=== PATIENT | male | born 1950 | race Caucasian/White ===

== ENCOUNTER 2020-10-20 17:24 | Emergency (ER) | payer BC, OTHER ==
[2020-10-20 17:43] VITALS: TEMP 97.9; BMI 33.6
[2020-10-20] MEDS ORDERED: morphine CARPU-JECT 4 MG/1 ML DISP.SYRIN IVPUSH ONE ×2 (17:50→18:42)
[2020-10-20] MEDS ORDERED: SODIUM CHLORIDE 0.9% 500 ML INFUS.BAG IV ONE (17:50)
[2020-10-20] MEDS ORDERED: morphine SULFATE 4 MG/ML VIAL ONE ×3 (18:01→21:16)
[2020-10-20 18:11] LABS: BASO % 0.9 % (0-2.0); EOS % 0.6 % (0-4.5); HEMOGLOBIN 13.3 GM/dl (11.7-16.9); LYMPH % 16.3 % (8-40); MCH 31.7 pg (25.7-33.7); MCHC 34.1 g/dl (32.0-35.9); MEAN PLT VOLUME 6.9 fl (7.5-11.1); MONO % 7.3 % (3.8-10.2); NEUT % 74.9 % (42.8-82.8); PLATELET COUNT 81 K/MM3 (134-434); RBC 4.19 M/mm3 (4.00-5.60); WHITE BLOOD COUNT 4.3 K/mm3 (4.0-10.8)
[2020-10-20 18:29] LABS: ALBUMIN 3.6 g/dl (3.4-5.0); ALK PHOS 91 U/L (45-117); ANION GAP 11 MMOL/L (8-16); BILIRUBIN,TOTAL 2.4 mg/dl (0.2-1); CALCIUM 9.1 mg/dl (8.5-10); CHLORIDE 105 mmol/L (98-107); CO2 21 mmol/L (21-32); CREATININE 0.9 mg/dl (0.55-1.3); GLUCOSE,RANDOM 143 mg/dl (74-106); SGOT/AST 33 U/L (15-37); SGPT/ALT 38 U/L (13-61); SODIUM 137 mmol/L (136-145); TOT PROT 7.5 g/dl (6.4-8.2)
[2020-10-20] MEDS ORDERED: ONDANSETRON 4 MG/2 ML VIAL IVPUSH ONE (18:42)
[2020-10-20] MEDS ORDERED: ONDANSETRON 4 MG/2 ML VIAL ONE (18:45)
[2020-10-20 19:07] LABS: LIPASE 101 U/L (73-393)
[2020-10-20 19:15] LABS: N-TERMINAL BNP 44.6 pg/ml (5-125)
[2020-10-20 21:00] VITALS: BP 158/94; PULSE 71
[2020-10-20] MEDS ORDERED: morphine CARPU-JECT 2 MG/1 ML DISP.SYRIN IVPUSH ONE (21:14)
[2020-10-20] MEDS ORDERED: FAMOTIDINE 20 MG/50 ML IVPB 20 MG in PREMIX 50 IVPB ONE (21:16)
[2020-10-20] MEDS ORDERED: FAMOTIDINE 20 MG/50 ML IVPB 20 MG/50 ML MG IVPB ONE (21:17)
[2020-10-20] MEDS ORDERED: METOCLOPRAMIDE HCL INJECTION 10 MG/2 ML VIAL ONE (21:18)
[2020-10-20] MEDS ORDERED: METOCLOPRAMIDE HCL INJECTION 10 MG/2 ML VIAL IVPUSH ONE (21:18)
== END 2020-10-20 22:47 | disposition home or self-care (01) ==
LOC: FER 17:24
PROC: 3E033GC Introduction of Other Therapeutic Substance into Peripheral Vein, Percutaneous Approach (ICD-10-PCS; principal; 2020-10-20)
PROC: 3E033GC Introduction of Other Therapeutic Substance into Peripheral Vein, Percutaneous Approach (ICD-10-PCS; 2020-10-20)
PROC: 3E033NZ Introduction of Analgesics, Hypnotics, Sedatives into Peripheral Vein, Percutaneous Approach (ICD-10-PCS; 2020-10-20)
PROC: 3E033NZ Introduction of Analgesics, Hypnotics, Sedatives into Peripheral Vein, Percutaneous Approach (ICD-10-PCS; 2020-10-20)
PROC: 3E033NZ Introduction of Analgesics, Hypnotics, Sedatives into Peripheral Vein, Percutaneous Approach (ICD-10-PCS; 2020-10-20)
PROC: 3E033GC Introduction of Other Therapeutic Substance into Peripheral Vein, Percutaneous Approach (ICD-10-PCS; 2020-10-20)
DX: R10.13 Epigastric pain (principal); R14.0 Abdominal distension (gaseous)
CPT/HCPCS: 36415; 74177-TC; 76705-TC; 80053; 81003; 82550; 83605; 83690; 83880; 84484; 85025; 87086; 93005; 99285-25; Q9967

== ENCOUNTER 2020-12-21 02:26 | Emergency (ER) | payer OTHER, MEDICARE ==
[2020-12-21] MEDS ORDERED: FUROSEMIDE 40 MG TABLET (FP) PO ONE (02:43)
[2020-12-21 02:44] VITALS: BP 135/76; PULSE 65; TEMP 98.2; BMI 33.2
[2020-12-21] MEDS ORDERED: FUROSEMIDE 20 MG TABLET (FP) PO ONE (02:44)
[2020-12-21] MEDS ORDERED: FUROSEMIDE 40 MG TABLET (FP) ONE (02:46)
== END 2020-12-21 02:57 | disposition home or self-care (01) ==
LOC: FER 02:26
DX: R60.0 Localized edema (principal)
CPT/HCPCS: 99283-25

== ENCOUNTER 2021-08-08 09:37 | Day surgery (SDC) | payer OTHER, MEDICARE ==
[2021-08-03 14:50] VITALS: BMI 32.7
[2021-08-08] MEDS ORDERED: ONDANSETRON 4 MG/2 ML VIAL ONE (10:17)
[2021-08-08] MEDS ORDERED: MIDAZOLAM HCL 2 MG/2 ML SINGLE DOSE VIAL ONE (10:18)
[2021-08-08] MEDS: CYCLOPENTOLATE 2% OPHTH SOLN 2 ML BOTTLE ONE ×3 (11:00→11:10)
[2021-08-08] MEDS: CIPROFLOXACIN 0.3% EYE DROPS 5 ML BOTTLE ONE ×3 (11:00→11:10)
[2021-08-08] MEDS: TROPICAMIDE 1% OPHTH SOLN 15 ML BOTTLE ONE ×3 (11:00→11:10)
[2021-08-08] MEDS: PHENYLEPHRINE 2.5% OPHTH SOLN 15 ML BOTTLE ONE ×3 (11:00→11:10)
[2021-08-08] MEDS ORDERED: CARBACHOL 0.01% INTRA-OCULAR 1.5 ML VIAL ONE (11:39)
[2021-08-08] MEDS ORDERED: BSS (NA/CA/MG/K) BALANCED SALT SOLUTION OPHTH SOLN 15 ML BOTTLE ONE (11:39)
[2021-08-08] MEDS ORDERED: BACITRACIN 3.5 GM OPTHALMIC OINT TUBE ONE (11:40)
[2021-08-08] MEDS ORDERED: BACITRACIN/POLYMYXIN OPH OINT 3.5 GM TUBE ONE (11:40)
[2021-08-08 13:25] VITALS: BP 124/71; TEMP 98.1
[2021-08-08 13:27] VITALS: PULSE 71
== END 2021-08-08 13:05 | disposition home or self-care (01) ==
LOC: FASU 09:37
PROVIDERS: ATTEND Ophthalmology
PROC: 08RJ3JZ Replacement of Right Lens with Synthetic Substitute, Percutaneous Approach (ICD-10-PCS; principal; 2021-08-08 11:55)
DX: H26.8 Other specified cataract (principal)